=== PATIENT | male | born 1965 | race African-American/Black ===

== ENCOUNTER 2017-04-22 08:08 | Emergency (ER) | payer MEDICARE, MEDICAID ==
[~2017-04-22] VITALS: Ht 185.4 cm; Wt 118.0 kg
[~2017-04-22 08:08] MED LIST: AMLO10TA2 PO; CARV-39 PO; CARV6.252 PO; CYCL-259 PO; HYDR25TA6 PO; METF500T4 PO; OXYC-229 PO; OXYC5CAP4 PO; PRAV40TA2 PO; SILD50TA PO
[2017-04-22] MEDS ORDERED: ALBUTEROL/IPRATROPIUM 2.5MG/0.5MG, 3 ML NPPB SCH (08:30)
[2017-04-22] MEDS ORDERED: SODIUM CHLORIDE FLUSH 10ML SYR IVF ONE (08:30)
[2017-04-22] MEDS ORDERED: AMLO5TAB2 PO (08:32)
[2017-04-22] MEDS ORDERED: CARV-39 PO (08:33)
[2017-04-22] MEDS ORDERED: LOSA1TAB17 PO (08:33)
[2017-04-22] MEDS ORDERED: ALBUTEROL/IPRATROPIUM 2.5MG/0.5MG, 3 ML ONE (08:43)
[2017-04-22 09:03] LABS: BLOOD UREA NITROGEN 9 mg/dL (7-18)
[2017-04-22 09:07] LABS: IS PT STATUS REG ER OR PRE ER? YES
[2017-04-22] MEDS ORDERED: ACETAMINOPHEN 325 MG TABLET ONE (09:35)
[2017-04-22] MEDS ORDERED: ALBUTEROL SULFATE 2.5 MG/3 ML ONE (09:58)
[2017-04-22] MEDS ORDERED: ALBUTEROL/IPRATROPIUM 2.5MG/0.5MG, 3 ML NPPB ONE (10:00)
[2017-04-22] MEDS ORDERED: ACETAMINOPHEN 325 MG TABLET PO ONE (10:00)
[2017-04-22] MEDS ORDERED: ALBUTEROL SULFATE 2.5 MG/3 ML NPPB PRN (10:00)
[2017-04-22 10:25] VITALS: BP 123/66
== END 2017-04-22 10:30 | disposition home or self-care (01) ==
LOC: ED 09:04
DX: J20.8 Acute bronchitis due to other specified organisms (principal); D72.829 Elevated white blood cell count, unspecified; Z88.6 Allergy status to analgesic agent; E11.9 Type 2 diabetes mellitus without complications; I10 Essential (primary) hypertension; E78.00 Pure hypercholesterolemia, unspecified
CPT/HCPCS: 36415; 71010; 80048; 82040; 83880; 84484; 85025; 93005; 94640; 99285; J7512; J7613; J7620

== ENCOUNTER 2018-02-05 18:50 | Emergency (ER) | payer MEDICARE, MEDICAID ==
[~2018-02-05] VITALS: Ht 182.9 cm; Wt 118.4 kg
[~2018-02-05 18:50] MED LIST changes: +AMLO5TAB2 PO; +LOSA1TAB22 PO; -OXYC-229 PO; +OXYC-307 PO; +OXYC5CAP2 PO; -OXYC5CAP4 PO
[2018-02-05 18:57] VITALS: BP 132/78
== END 2018-02-05 19:29 | disposition home or self-care (01) ==
LOC: ED 19:23
DX: H60.11 Cellulitis of right external ear (principal); E11.9 Type 2 diabetes mellitus without complications; G47.30 Sleep apnea, unspecified; I10 Essential (primary) hypertension; D72.829 Elevated white blood cell count, unspecified; E78.00 Pure hypercholesterolemia, unspecified
CPT/HCPCS: 99283